=== PATIENT | male | born 1995 | race Two or more races ===

== ENCOUNTER 2024-08-05 13:19 | Emergency (ER) | payer MEDICAID, SELFPAY ==
[2024-08-05 13:48] VITALS: BP 150/81; PULSE 74; RESP 18; TEMP 37.1; O2SAT 97; BMI 32.1
--- NOTE | 2024-08-05 14:16 | PD.EDADULT ---
ED General RME/HPI General Chief complaint: Ear Stated complaint: RIGHT EAR INFECTION X2 DAYS, PAIN Time Seen by Provider: 08/05/24 14:16 Arrival date/time: 08/05/24 13:19 CC: Right ear pain HPI ongoing for the past several days patient was seen 2 days ago in the [place] area by Doctor. States they put some cotton in his ear, and put him on drops for his ear and oral antibiotics. The patient states he continues to experience pain this morning he pulled the cotton out, stayed there was a small amount of bleeding. Patient denies fever shortness of breath or difficulty breathing Related Data Allergies Allergy/AdvReac Type Severity Reaction Status Date / Time No Known Allergies Allergy Verified 08/05/24 13:22 Review of Systems Review of Systems Narrative Review of Systems: GEN: No fever, no chills, no weight loss EYES: No discharge, no visual changes, no pain HEENT: + ear pain, no congestion, no sore throat PULM: No shortness of breath, no cough, no congestion CV: No chest pain, no dyspnea on exertion, no palpitations GI: No nausea, no vomiting, no diarrhea, no pain, no constipation : No frequency, no urgency, no dysuria MUSC/SKEL: No joint pain, no back pain SKIN: No rash PSYCH: No hallucinations, no depression HEME/LYMPH: No easy bleeding or bruising tendencies NEURO: No weakness, no headache Past Medical History Social History SMOKING STATUS: Never smoker ED Exam Narrative Physical exam: [General: Obese not in any acute distress Head normocephalic HEENT: Right ear's, EAC is 90% occluded secondary to edema with a small amount of serous and bloody oozing. Left EAC with a large tear in the EAC, but it is clear, TM is visible no erythema edema positive cone of light. All the subsystems of HEENT are within acceptable limits Neck is supple nontender Chest equal chest rise nontender to palpation Respiratory: Clear to auscultation no wheezes crackles or rubs CV: Rate rhythm is regular no murmurs rubs or clicks Abdomen is distended secondary to body habitus soft nontender no masses positive bowel sounds all 4 quadrants Back: No CVA tenderness no spinous process tenderness from cervical spine thoracic and lumbar spine Skin: Intact no petechiae rash induration ulceration or crepitus Extremities: Moving all extremity against resistance cap refill less than 2 seconds neurosensory intact Neuro: Awake alert oriented x3 Glascow coma 15 no focal deficits] Course Quality Measures none Vital Signs Vital signs: Vital Signs Temperature 98.7 F 08/05/24 13:48 Pulse Rate 74 08/05/24 13:48 Respiratory Rate 18 08/05/24 13:48 Blood Pressure 150/81 H 08/05/24 13:48 Pulse Oximetry (%) 97 08/05/24 13:48 Oxygen Delivery Method Room Air 08/05/24 13:48 Procedures -ED Procedure Comment Wick replaced in the right EAC and the small area still open. Patient tolerated the procedure well. [facility] Patient data External records reviewed:: [facility] previous records Clinical information provided by:: patient Social determinants that could affect healthcare access:: none Patient has the following chronic illnesses:: None How is presenting disease/condition affected by chronic disease/condition?: uneffected by Evaluation data The following diagnostics were reviewed and interpreted by me:: other (specify) (None) Lab and/or radiology exams considered but not ordered:: None Interpretation Summary: Otitis externa Medications Medications considered but not ordered:: None Medication administrations:: None Consultations Consultation(s) initiated? (list below): No Diagnosis Differential Diagnosis ED Complaint MDM: Otitis externa otitis media external ear cellulitis Most likely diagnosis given after review of the tests above:: Otitis externa Admission Indicated Admission indicated?: not indicated Explain why admission is indicated or not indicated:: Patient to follow-up outpatient basis Admission Request Was there a request for admission?: No Disposition Plan Disposition Plan: Discharge Discharge Attestation Discharge Attestation: The patient and all family members were given an opportunity to ask questions and understood the discharge instructions. Discharge instructions specifically effects, indications for sooner follow up or return to the emergency department, and the expected course of current diagnosis. Patient condition: Stable Medical Decision Making Differential Diagnosis Differential Diagnosis: Otitis externa otitis media external ear cellulitis Discharge Plan Plan Patient Disposition: HOME (Self Care) Patient condition on transfer: Stable Prescriptions/Referrals Referrals: Paco Avelar MD [Physician] - In 1 week Problem List Clinical Impression: Otitis externa Patient/Caregiver Discharge Instructions Education Materials: ED External Ear Infection (Adult) Additional Instructions: Take all the antibiotics as prescribed from the previous provider, take 600 mg of ibuprofen every 8 hours for the next 3 days see if there is a worsening of symptoms after 3 days return the emergency room for reevaluation. Print Language: Korean Stand Alone Forms: Kellie Award Info., Patient Portal Info Letter MD Attestation Attestation The patient was seen by the midlevel practitioner. I, the co-signing physician, was present during the entire ER visit. While I did not physically examine the patient, I was available for consultation as needed.
--- NOTE | 2024-08-05 14:52 | PC.NURSE ---
CALLED FROM [facility] FOR DISCHARGE AND NO ANSWER
--- NOTE | 2024-08-05 14:58 | PC.NURSE ---
CALLED FROM [facility] FOR DISCHARGE AND NO ANSWER
== END 2024-08-05 15:00 | disposition home or self-care (01) ==
PROVIDERS: Emergency Provider Emergency Medicine
DX: H60.91 Unspecified otitis externa, right ear (principal)
CPT/HCPCS: 99281

== ENCOUNTER 2025-05-12 21:38 | Emergency (ER) | payer MEDICAID, SELFPAY ==
[2025-05-12 22:24] VITALS: BP 128/74; PULSE 98; RESP 18; TEMP 37.8; O2SAT 98; BMI 29.2
--- NOTE | 2025-05-12 22:28 | EKG_ITS ---
[facility] Test Date: 2025-05-12 Pat Name: NAYELY VERDUZCO Department: Room: - Gender: Male Pediatric Immunologist: : 1995 Requested By: Purvi Downing Order Number: [id number] Reading MD: Purvi Downing Measurements Intervals [place] Rate: 89 P: 35 VT: 150 QRS: 22 QRSD: 109 T: 34 QT: 337 QTc: 412 Interpretive Statements SINUS RHYTHM No previous ECG available for comparison /store/S0/[id number].pdf
--- NOTE | 2025-05-12 22:28 | XR_ITS ---
Examination: PA chest single view TECHNIQUE: PA upright chest single view Date and time: May 12, 2025 10:35 PM INDICATION: Chest pain shortness of breath beginning today. FINDINGS: Normal heart size. Lungs are clear. The osseous structures are intact IMPRESSION: No active disease
[2025-05-12 23:08] LABS: Basophils # (Auto) 0.0 Thou/mm3 (0.0-0.2); Basophils % (Auto) 0 % (0-2.5); Eosinophils # (Auto) 0.0 Thou/mm3 (0.0-0.5); Eosinophils % (Auto) 0 % (0-10); Hematocrit 43.1 % (41.0-53.0); Hemoglobin 14.8 g/dL (13.5-16.0); Immature Granulocytes Auto 0.02 Thou/mm3 (0.00-0.00); Lymphocytes # (Auto) 0.6 Thou/mm3 (1.0-4.8); Lymphocytes % (Auto) 7 % (10-50); Mean Corpuscular HGB Conc 34.3 g/dl (31.0-37.0); Mean Corpuscular Hemoglobin 28.4 pg (25.0-35.0); Mean Corpuscular Volume 83 fL (80-100); Monocytes # (Auto) 0.6 Thou/mm3 (0.0-0.8); Monocytes % (Auto) 6 % (0-12); Neutrophils # (Auto) 7.8 Thou/mm3 (1.8-7.7); Neutrophils % (Auto) 86 % (37-80); Nucleated Red Blood Cell # 0.00 Thou/mm3 (0.00-0.00); Nucleated Red Blood Cell % 0 /100 WBC (0); Platelet Count 133 Thou/mm3 (140-440); RDW Standard Deviation 40.2 fL (35.1-43.9); Red Blood Count 5.21 Miln/mm3 (4.50-5.90); White Blood Count 9.0 Thou/mm3 (3.8-10.6)
[2025-05-12 23:25] LABS: B-Type Natriuretic Peptide < 20 pg/mL (0-100)
[2025-05-12 23:26] LABS: Alanine Aminotransferase 23 U/L (10-49); Albumin, Serum 4.8 gm/dL (3.5-5.0); Albumin/Globulin Ratio 2.0 (1.2-2.2); Alkaline Phosphatase 66 U/L (46-116); Anion Gap 10 (7-16); Aspartate Amino Transferase 25 U/L (0-34); BUN/Creatinine Ratio 11 Ratio (12-20); Bilirubin,Total 1.3 mg/dL (0.3-1.2); Blood Urea Nitrogen 12 mg/dL (9-23); Calcium 9.4 mg/dL (8.3-10.6); Calcium (Corrected) 9.4 mg/dL (8.5-10.1); Carbon Dioxide 24.5 mMol/L (20.0-31.0); Chloride 104 mMol/L (98-107); Creatinine (Component) 1.1 mg/dL (0.6-1.3); Estimated Creatinine Clearance 111.1 mL/min (>60); Globulin 2.4 gm/dL (2.3-3.5); Glucose 105 mg/dL (74-106); Osmolality,Calculated 275 (275-295); Potassium 3.4 mMol/L (3.4-5.1); Sodium 138 mMol/L (136-145); Total Protein 7.2 gm/dL (5.7-8.2); Troponin I < 0.002 ng/mL (0.0-0.045); eGFR > 60 See Note
--- NOTE | 2025-05-12 23:49 | EDNOTE_ITS ---
ED Chest Pain RME/HPI General Chief Complaint: Chest Pain Stated Complaint: VOMITING, UPPER ABD PAIN, CHEST PAIN WITH SOB Time Seen by Provider: 05/12/25 22:09 Source: patient Arrival date/time: 05/12/25 21:38 This is a case of 30-year-old male who came in in the emergency room due to dar[address] st pain on and off for 2 days radiating to his epigastric pain not abdominal pain with nausea vomiting but no constipation no diarrhea patient denies any palpitation no shortness of breath persistence of the symptoms thus patient decided to start consult here in the emergency room Limitations: no limitations Related Data Previous Rx's ?Medication ?Instructions ?Recorded famotidine 20 mg tablet 20 mg PO BID #60 tabs omeprazole 20 mg capsule,delayed 20 mg PO QDAY #30 cap s 05/12/25 release ondansetron 4 mg disintegrating 4 mg PO Q8H PRN nausea and 05/12/25 tablet vomiting #20 tabs Allergies Allergy/AdvReac Type Severity Reaction Status Date / Time No Known Allergies Allergy Verified 05/12/25 21:39 Review of Systems Review of Systems Systems Reviewed: All systems reviewed, normal except as documented Constitutional Constitutional: Reports system reviewed and no additional complaints, except as documented, Reports as per HPI, Denies chills and Denies fever(s) Cardiovascular Cardiovascular: Reports system reviewed and no additional complaints, except as documented, Reports as per HPI, Reports chest pain, Denies dyspnea, Denies dyspnea on exertion, Denies irregular heart rhythm, Denies rapid heart rate, Denies slow heart rate and Denies syncope Respiratory Respiratory: Reports system reviewed and no additional complaints, except as documented, Reports as per HPI, Denies chest congestion, Denies cough, Denies dyspnea and Denies dyspnea on exertion Gastrointestinal Gastrointestinal: Reports system reviewed and no additional complaints, except as documented, Reports as per HPI, Denies abdominal pain, Denies constipation, Denies diarrhea, Reports heartburn, Reports nausea and Reports vomiting Neurologic Neurologic: Reports system reviewed and no additional complaints, except as documented, Reports as per HPI and Denies syncope Past Medical History Social History SMOKING STATUS: Never smoker ED Exam General Limitations: Present no limitations General appearance: Present alert, in no apparent distress and other (Patient is awake alert oriented not in distress nontoxic looking well-hydrated well- nourished) Head Head exam: Present atraumatic, normocephalic and normal inspection Eye Eye exam: Present normal appearance, PERRL and EOMI ENT ENT exam: Present normal exam, normal oropharynx and mucous membranes moist Neck Neck exam: Present normal inspection, full ROM and trachea midline; Absent tenderness, meningismus, lymphadenopathy or thyromegaly Chest Chest inspection: Present normal inspection and symmetric chest wall rise; Absent tenderness Respiratory Respiratory exam: Present normal lung sounds bilaterally; Absent respiratory distress, wheezes, stridor, accessory muscle use or prolonged expiratory phase Cardiovascular Cardiovascular exam: Present regular rate, normal rhythm and normal heart sounds Abdominal Exam Abdominal exam: Present soft and normal bowel sounds; Absent distention, tenderness, guarding, rebound, rigidity, diminished bowel sounds, hyperactive bowel sounds, hypoactive bowel sounds, organomegaly, psoas sign, obturator sign, Liao's sign, Rovsing's sign or tenderness at McBurney's Point Extremities Exam Extremities exam: Present normal inspection and full ROM Back Exam Back exam: Present normal inspection and full ROM Neurological Exam Neurological exam: Present alert, oriented X3, CN II-XII intact, normal gait and reflexes normal; Absent motor sensory deficit Psychiatric Psychiatric exam: Present normal affect and normal mood Skin Skin exam: Present warm, dry, intact and normal color Course Quality Measures none Orders Category Date Time Status EKG (ED ONLY) *Do not use* NOW Care 05/12/25 22:29 Completed EKG (ED Only) Stat Exams 05/12/25 22:28 Draft XR chest 1V portable Stat Exams 05/12/25 22:28 Completed BNP [B-Type Natriuretic Peptide] Stat Lab 05/12/25 22:48 Completed CBC Stat Lab 05/12/25 22:48 Completed CMP [Comprehensive Metabolic Panel] Stat Lab 05/12/25 22:48 Completed Troponin I Stat Lab 05/12/25 22:48 Completed Famotidine [Pepcid] Med 05/12/25 23:46 Discontinued 40 mg PO X1 ONE Lidocaine 2% Viscous [Xylocaine 2% Viscous] Med 05/12/25 23:46 Discontinued 15 ml PO X1 ONE Ondansetron Odt [Zofran Odt] Med 05/12/25 23:46 Discontinued 4 mg PO X1 ONE mg Hyd/Al Hyd/Elaine Susp [Maalox Susp] Med 05/12/25 23:46 Discontinued 30 ml PO X1 ONE Vital Signs Vital signs: Vital Signs Temperature 100.1 F 05/12/25 22:24 Pulse Rate 98 05/12/25 22:24 Respiratory Rate 18 05/12/25 22:24 Blood Pressure 128/74 05/12/25 22:24 Pulse Oximetry (%) 98 05/12/25 22:24 Oxygen Delivery Method Room Air 05/12/25 22:24 Oxygen saturation is 98% in room air Chest Pain MDM Narrative MDM Narrative:: This is a case of 30-year-old male who came in in the emergency room due to chest pain on and off for 2 days radiating to his epigastric pain not abdominal pain with nausea vomiting but no constipation no diarrhea patient denies any palpitation no shortness of breath persistence of the symptoms thus patient decided to start consult here in the emergency room patient is awake alert oriented not in distress nontoxic looking well-hydrated well-nourished lungs sound is clear no crackles no rales or retraction no stridor heart normal rate regular rhythm no murmur vital signs stable BP stable not tachycardic not tachypneic not hypoxic afebrile patient abdominal exam is benign nonsurgical no guarding no rebound no rigidity no tenderness negative psoas negative straight or negative Rovsing's no McBurney's no Liao sign negative CVA tenderness the rest of the physical examination and neurological exam is normal and unremarkable blood test showed no leukocytosis no anemia kidney and liver function is normal no electrolyte imbalance urinalysis is normal patient EKG is normal 89 heart rate sinus rhythm patient troponin and BNP is normal chest x-ray is normal at this point patient condition noted noncardiac possible gastritis patient will follow-up with PCP in 2 days for reevaluation and to be referred to ship loader for chest pain for possible echocardiogram stress test and Holter monitor and to be referred to manufacturing storeperson for gastritis patient was given Zofran and GI cocktail which patient condition markedly improved patient advised for any worsening symptoms return precaution in the ER was advised Patient was discharged with comfortable condition walking with stable gait. Patient verbalized no further complains explained diagnosis and answered patient question. Patient is comfortable with the proposed management plan including the need to follow up with his/her primary care physician and any specialist if applicable Discussed patient for any urgent condition or worsening sx, He/She needed to go to emergency room immediately or call 911. Patient acknowledge the responsibility to follow up as instructed and to monitor her/his symptoms. For any persistence of the symptoms for more than 3-5 days return precaution advised. Discussed the result of the test and was given printed discharge instruction Patient data External records reviewed:: [facility] previous records Clinical information provided by:: patient Social determinants that could affect healthcare access:: none Patient has the following chronic illnesses:: None How is presenting disease/condition affected by chronic disease/condition?: no chronic disease Evaluation data The following diagnostics were reviewed and interpreted by me:: lab results and radiology exam(s) Lab and/or radiology exams considered but not ordered:: Reviewed Interpretation Summary: Reviewed Medications / Prescriptions Medications or Prescriptions considered but not ordered:: Given Medication administrations:: Medication Administration History Discontinued Medications Al Hydrox/Mg Hydrox/Simethicone (Mg Hyd/Al Hyd/Elaine (Maalox Reg) Susp 30 Ml Udc) 30 ml PO X1 ONE Stop: 05/12/25 23:47 Famotidine (Famotidine 20 Mg Tablet) 40 mg PO X1 ONE Stop: 05/12/25 23:47 Lidocaine HCl (Lidocaine Viscous 2% 15 Ml Udc) 15 ml PO X1 ONE Stop: 05/12/25 23:47 Ondansetron HCl (Ondansetron Odt 4 Mg Tabrap) 4 mg PO X1 ONE; Protocol Stop: 05/12/25 23:47 Given Consultations Consultation(s) initiated? (list below): No Diagnosis Chest Pain Differential Diagnosis: atypical chest pain, costochondritis, chest pain and other (Gastritis) Most likely diagnosis given after review of the tests above:: Chest pain of unknown etiology gastritis Admission Indicated Admission indicated?: not indicated Explain why admission is indicated or not indicated:: Not indicated Admission Request Was there a request for admission?: No Admission Attestation Admission request attestation: Not indicated Disposition Plan Disposition Plan: Discharge Discharge Attestation Discharge Attestation: The patient and all family members were given an opportunity to ask questions and understood the discharge instructions. Discharge instructions specifically effects, indications for sooner follow up or return to the emergency department, and the expected course of current diagnosis. Patient condition: Stable Discharge Plan Plan Patient Disposition: HOME (Self Care) Patient condition on transfer: Stable Prescriptions/Referrals Prescriptions/Med Rec: New famotidine 20 mg tablet 20 mg PO BID Qty: 60 0RF omeprazole 20 mg capsule,delayed release(DR/EC) 20 mg PO QDAY Qty: 30 0RF ondansetron 4 mg tablet,disintegrating 4 mg PO Q8H PRN (Reason: nausea and vomiting) Qty: 20 0RF Referrals: Rodolfo Garcia MD [Primary Care Provider] - In 1 week Problem List Clinical Impression: Chest pain of unknown etiology, Gastritis Patient/Caregiver Discharge Instructions Education Materials: ED Chest Pain, Uncertain Cause, ED Gastritis (Adult) Additional Instructions: Follow-up with your primary care physician in 2 days for reevaluation and to be referred to ship loader for further evaluation and treatment of chest pain for possible echocardiogram stress test and Holter monitor and to be referred to manufacturing storeperson for further evaluation and treatment of gastritis for possi ble EGD worsening symptoms recurrence of the symptoms persistence of symptoms or any emergent concern call 911 or go to the nearest emergency room take your medication as directed keep hydrated spatulate Gatorade for hydration avoid skipping of meals avoid spicy food avoid fatty fried high cholesterol Daily foods avoid alcohol soda coffee Print Language: Maori Stand Alone Forms: Kellie Award Info., Patient Portal Info Letter PA/HAND BASEBALL SEWER Supervising Physician PA/HAND BASEBALL SEWER Supervising Physician: Dr. Rocha
[2025-05-12] MEDS: MG HYD/AL HYD/SIME (Maalox Reg) SUSP 30 ML UDC PO (23:58)
[2025-05-12] MEDS: ONDANSETRON ODT 4 MG TABRAP PO (23:58)
[2025-05-12] MEDS: LIDOCAINE VISCOUS 2% 15 ML UDC PO (23:58)
[2025-05-12] MEDS: FAMOTIDINE 20 MG TABLET 40 MG PO (23:58)
[2025-05-13 00:02] VITALS: BP 128/76; PULSE 72; RESP 16; TEMP 36.8; O2SAT 98
== END 2025-05-13 00:03 | disposition home or self-care (01) ==
PROVIDERS: Nurse Practitioner Family; Emergency Provider Emergency Medicine; PCP Specialist
DX: R07.9 Chest pain, unspecified (principal); K29.70 Gastritis, unspecified, without bleeding
CPT/HCPCS: 36415; 71045; 80053; 83880; 84484; 85025; 93005; 99283; J3490; Q0162; A9270